=== PATIENT | male | born 1955 | race Caucasian/White ===

== ENCOUNTER 2017-08-09 15:27 | Inpatient (IN) | payer OTHER ==
[2017-08-09 18:44] LABS: ADD MAN DIFF? NO
[2017-08-09] MEDS: ASPIRIN 325 MG TAB PO (18:46)
[2017-08-09] MEDS: NITROGLYCERIN 2% 1 GM OINT PKT TD (18:46)
[2017-08-09 18:48] LABS: BASOPHILS % 0.6 % (0.0-2.0); EOSINOPHILS # 0.1 10^3/ul (0.0-0.5); EOSINOPHILS % 1.6 % (0.0-7.0); HEMATOCRIT 41.3 % (42.0-52.0); HEMOGLOBIN 14.2 g/dl (14.0-18.0); MEAN CORPUSCULAR HEMOGLOBIN 30.3 pg (29.0-33.0); MEAN CORPUSCULAR HGB CONC 34.4 g/dl (32.0-37.0); MEAN CORPUSCULAR VOLUME 88.1 fl (82.0-101.0); MEAN PLATELET VOLUME 9.9 fl (7.4-10.4); MONOCYTE # 0.6 10^3/ul (0.3-0.9); MONOCYTES % 8.1 % (0.0-11.0); NEUTROPHIL # 4.1 10^3/ul (1.6-7.5); NEUTROPHILS % 60.4 % (39.0-77.0); PLATELET COUNT 253 10^3/UL (140-415); RED BLOOD COUNT 4.69 10^6/ul (4.70-6.10); RED CELL DISTRIBUTION WIDTH 12.4 % (11.5-14.5)
[2017-08-09 18:48] LABS: WHITE BLOOD COUNT 6.8 10^3/ul (4.8-10.8)
[2017-08-09 19:14] LABS: ALANINE AMINOTRANSFERASE 28 IU/L (13-69); ALBUMIN/GLOBULIN RATIO 1.48; ALKALINE PHOSPHATASE 57 IU/L (42-121); ANION GAP 11 (8-16); ASPARTATE AMINO TRANSFERASE 16 IU/L (15-46); BLOOD UREA NITROGEN 12 mg/dl (7-20); CALCIUM 9.5 mg/dl (8.4-10.2); CARBON DIOXIDE 30 mmol/L (21-31); CHLORIDE 102 mmol/L (97-110); CREATININE 0.83 mg/dl (0.61-1.24); GLUCOSE 121 mg/dl (70-220); SODIUM 139 mmol/L (135-144); TOTAL PROTEIN 6.7 g/dl (6.1-8.1)
[2017-08-09 19:41] LABS: TROPONIN-I < 0.012 ng/ml (0.000-0.120)
[2017-08-09] MEDS ORDERED: ACETAMINOPHEN 325 MG TAB PO (20:30)
[2017-08-09] MEDS ORDERED: ONDANSETRON 4 MG INJ IV ×2 (20:30→22:00)
[2017-08-09] MEDS ORDERED: morphine 2 MG INJ IV (22:00)
[2017-08-09] MEDS ORDERED: NITROGLYCERIN (SL) 0.4 MG TAB SL (22:00)
[2017-08-10 01:43] LABS: TROPONIN-I < 0.012 ng/ml (0.000-0.120)
[2017-08-10 06:19] LABS: TROPONIN-I < 0.012 ng/ml (0.000-0.120)
[2017-08-10] MEDS ORDERED: hydrALAzine 20 MG INJ IV (06:30)
[2017-08-10] MEDS: METOPROLOL 25 MG TAB PO ×2 (08:53→20:27)
[2017-08-10] MEDS: ACETAMINOPHEN 325 MG TAB PO (12:39)
[2017-08-10] MEDS ORDERED: morphine LIQ (10 MG/5 ML) CUP PO (14:30)
[2017-08-10] MEDS: CYCLOBENZAPRINE 10 MG TAB PO ×2 (14:45→20:26)
[2017-08-10] MEDS: HYDROCODONE/APAP (5/325) TAB PO (22:21)
[2017-08-11] MEDS: CYCLOBENZAPRINE 10 MG TAB PO (08:55)
[2017-08-11] MEDS: METOPROLOL 25 MG TAB PO (08:56)
[2017-08-11] MEDS: LOSARTAN 25 MG TAB PO (16:22)
[2017-08-11] MEDS: IBUPROFEN 400 MG TAB PO (18:07)
[2017-08-11] MEDS ORDERED: CYCLOBENZAPRINE 10 MG TAB PO (21:00)
[2017-08-11] MEDS: HYDROCODONE/APAP (5/325) TAB PO (22:46)
[2017-08-12] MEDS: IBUPROFEN 400 MG TAB PO ×2 (05:30)
[2017-08-12] MEDS: LOSARTAN 25 MG TAB PO ×2 (08:07→10:13)
== END 2017-08-12 10:57 | disposition home or self-care (01) | DRG 206 ==
LOC: E/R 15:27 → MS3 20:16
DX: M94.0 Chondrocostal junction syndrome [Tietze] (principal); I10 Essential (primary) hypertension; Z87.891 Personal history of nicotine dependence
CPT/HCPCS: 36415; 71045; 80053; 84484; 85025; 93005; 93306; 97161; 99285-25